=== PATIENT | male | born 1995 | race Caucasian/White ===

== ENCOUNTER 2018-07-09 18:20 | Emergency (ER) | payer OTHER ==
[2018-07-09] MEDS ORDERED: DERMABOND SKIN ADHESIVE TOP ONE (20:16)
--- NOTE | 2018-07-09 20:25 | RAD REPORT ---
EXAM DESCRIPTION: CT - Head Brain Wo Cont - 07/09/2018 8:12 pm CLINICAL HISTORY: TRAUMA Head injury COMPARISON: No comparisons TECHNIQUE: All CT scans are performed using dose optimization technique as appropriate and may inclu de automated exposure control or mA/KV adjustment according to patient size. FINDINGS: No intracranial hemorrhage, hydrocephalus or extra-axial fluid collection.No areas of brai n edema or evidence of midline shift. The paranasal sinuses and mastoids are clear. Small amount of air is seen along the medial soft tissu es of the nose scalp likely related to laceration. Small fracture of the inferior anterior wall of th e frontal sinus near the junction with the anterior ethmoid air cells is present adjacent to this reg ion. IMPRESSION: Small fracture anterior wall of the inferior right frontal sinus near the junction with the ethmoid air cell is noted, with adjacent findings of laceration seen. No acute intracranial abno rmality.
--- NOTE | 2018-07-09 20:41 | ER ---
Nurse's Notes [facility] Name: Ramses Pacheco Jr Age: 22 yrs Sex: Male : 1995 Arrival Date: 07/09/2018 Time: 18:23 Bed 15 Private MD: Kvng Coe B Diagnosis: Postconcussional syndrome;Laceration without foreign body of eyelid and periocular area;Acute Traumatic Frontal Sinus Fracture Presentation: 07/09 18:28 Presenting complaint: Patient states: "I was at was at work today working with some aa5 metal grabbers and they snapped and hit me in the right eye". Small laceration that is superficial noted to right upper eyelid, no active bleeding noted. Pt denies dizziness, denies feeling lightheaded. Reports multiple vomiting episodes. Denies LOC. Transition of care: patient was not received from another setting of care. Onset of symptoms was July 09, 2018 at 15:30. Risk Assessment: Do you want to hurt yourself or someone else? Patient reports no desire to harm self or others. Initial Sepsis Screen: Does the patient meet any 2 criteria? No. Patient's initial sepsis screen is negative. Does the patient have a suspected source of infection? No. Patient's initial sepsis screen is negative. Care prior to arrival: None. 18:28 Method Of Arrival: Ambulatory aa5 18:28 Acuity: MARY 3 aa5 Historical: - Allergies: 18:33 Augmentin; aa5 - PMHx: 18:33 None; aa5 - PSHx: 18:33 None; aa5 - Immunization history:: Adult Immunizations up to date. - Social history:: Smoking status: Patient/guardian denies using tobacco. - Ebola Screening: : No symptoms or risks identified at this time. Screenin:38 Abuse screen: Denies threats or abuse. Denies injuries from another. Abuse screen:. aa1 Nutritional screening: No deficits noted. Tuberculosis screening: No symptoms or risk factors identified. Fall Risk None identified. Assessment: 19:38 General: Appears in no apparent distress. comfortable, Behavior is calm, cooperative, aa1 appropriate for age. Pain: Complains of pain in right eye. Neuro: Level of Consciousness is awake, alert, obeys commands, Oriented to person, place, time, situation, Moves all extremities. Full function Gait is steady, Speech is normal, Pupils are PERRLA, Denies blurred vision dizziness, headache photophobia diplopia. Respiratory: Airway is patent Respiratory effort is even, unlabored, Respiratory pattern is regular, symmetrical. GI: Reports vomiting. : No signs and/or symptoms were reported regarding the genitourinary system. EENT: No signs and/or symptoms were reported regarding the EENT system. Derm: Skin is intact, is healthy with good turgor, Skin is pink, warm \\T\\ dry. Musculoskeletal: Circulation, motion, and sensation intact. Capillary refill < 3 seconds, Range of motion: intact in all extremities. 20:07 Reassessment: Patient appears in no apparent distress at this time. Patient is alert, aa1 oriented x 3, equal unlabored respirations, skin warm/dry/pink. Pt taken to CT at this time. 21:00 Reassessment: Patient appears in no apparent distress at this time. Patient is alert, aa1 oriented x 3, equal unlabored respirations, skin warm/dry/pink. Discussed d/c \\T\\ f/u instructions with pt \\T\\ mother; denies questions or concerns at this time Patient states feeling better. Vital Signs: 18:33 BP 140 / 70; Pulse 96; Resp 18 S; Temp 98.0(TE); Pulse Ox 100% on R/A; Weight 73.94 kg aa5 (R); Height 6 ft. 2 in. (187.96 cm) (R); Pain 5/10; 19:38 BP 119 / 74; Pulse 88; Resp 16; Pulse Ox 99% on R/A; Pain 5/10; aa1 20:31 BP 122 / 78; Pulse 80; Resp 16; Pulse Ox 100% on R/A; aa1 18:33 Body Mass Index 20.93 (73.94 kg, 187.96 cm) aa5 18:33 Pt c/o pain to right eye aa5 Marky Coma Score: 20:35 Eye Response: spontaneous(4). Verbal Response: oriented(5). Motor Response: obeys jr8 commands(6). Total: 15. ED Course: 18:23 Patient arrived in ED. mr 18:24 Kvng Coe MD is Private Physician. mr 18:28 Arm band placed on. aa5 18:32 Triage completed. aa5 19:03 Kian Porras PA is PHCP. jr8 19:03 Quinten Handy MD is Attending Physician. jr8 19:24 Jeannette Crow, RN is Primary Nurse. aa1 19:38 Patient has correct armband on for positive identification. Bed in low position. Call aa1 light in reach. Pulse ox on. NIBP on. 20:[address] nj 20:10 CT completed. Patient tolerated procedure well. Patient moved back from [place]. nm 20:13 CT Head Brain wo Cont In Process Unspecified. EDMS 20:39 Kvng Coe MD is Referral Physician. jr8 21:00 No provider procedures requiring assistance completed. Patient did not have IV access aa1 during this emergency room visit. Administered Medications: No medications were administered Outcome: 20:40 Discharge ordered by . jr8 21:00 Discharged to home ambulatory, with family. aa1 21:00 Condition: good 21:00 Discharge instructions given to patient, family, Instructed on discharge instructions, follow up and referral plans. medication usage, Demonstrated understanding of instructions, follow-up care, medications, Prescriptions given X 2. 21:05 Patient left the ED. aa1 Signatures: Dispatcher [employer] EDMS Jeannette Crow, RN RN aa1 Anila Dotson mr Luz Bermudez RN RN aa5 Kian Porras PA PA jr8 Jesús Chavira Corrections: (The following items were deleted from the chart) 18:33 18:28 Presenting complaint: Patient states: "I was at was at work today working with aa5 some metal grabbers and they snapped and hit me in the right eye". Small laceration that is superficial noted to right upper eyelid, no active bleeding noted. Pt denies dizziness, denies feeling lightheaded. Reports multiple vomiting episodes. Denies LOC. aa5
--- NOTE | 2018-07-09 20:41 | EDPHYS ---
Physician Documentation [facility] Name: Ramses Pacheco Jr Age: 22 yrs Sex: Male : 1995 Arrival Date: 07/09/2018 Time: 18:23 Bed 15 Private MD: Kvng Coe B ED Physician Quinten Handy HPI: 07/09 20:35 This 22 yrs old Male presents to ER via Ambulatory with complaints of Head jr8 Injury Without LOC-Adult, Vomiting, Weakness. 20:35 The patient or guardian reports a laceration, pain, tenderness. The complaints affect jr8 the forehead. Onset: The symptoms/episode began/occurred acutely, today. Associated signs and symptoms: Loss of consciousness: This patient did not experience any loss of consciousness. Pertinent positives: nausea, vomiting. Severity of symptoms: At their worst the symptoms were moderate, in the emergency department the symptoms have improved. The patient has not experienced similar symptoms in the past. The patient has not recently seen a physician. Accidently hit head with large crimping tool at work. Was initially dazed. Had three bouts of vomiting over an hours period of time. Currently better . Historical: - Allergies: 18:33 Augmentin; aa5 - PMHx: 18:33 None; aa5 - PSHx: 18:33 None; aa5 - Immunization history:: Adult Immunizations up to date. - Social history:: Smoking status: Patient/guardian denies using tobacco. - Ebola Screening: : No symptoms or risks identified at this time. ROS: 20:35 ENT: Negative for injury, pain, and discharge, Neck: Negative for injury, pain, and jr8 swelling, Cardiovascular: Negative for chest pain, palpitations, and edema, Respiratory: Negative for shortness of breath, cough, wheezing, and pleuritic chest pain, Abdomen/GI: Negative for abdominal pain, nausea, vomiting, diarrhea, and constipation, Back: Negative for injury and pain, MS/Extremity: Negative for injury and deformity. 20:35 Eyes: Positive for laceration to right eyelid . 20:35 Neuro: Positive for headache, Negative for altered mental status, dizziness, gait disturbance, hearing loss, loss of consciousness, numbness, seizure activity, speech changes, syncope, near syncope, tingling, tinnitus, tremor, visual changes, weakness. Exam: 20:35 ENT: Nares patent. No nasal discharge, no septal abnormalities noted. Tympanic jr8 membranes are normal and external auditory canals are clear. Oropharynx with no redness, swelling, or masses, exudates, or evidence of obstruction, uvula midline. Mucous membranes moist. Neck: Trachea midline, no thyromegaly or masses palpated, and no cervical lymphadenopathy. Supple, full range of motion without nuchal rigidity, or vertebral point tenderness. No Meningismus. Cardiovascular: Regular rate and rhythm with a normal S1 and S2. No gallops, murmurs, or rubs. Normal PMI, no JVD. No pulse deficits. Respiratory: Lungs have equal breath sounds bilaterally, clear to auscultation and percussion. No rales, rhonchi or wheezes noted. No increased work of breathing, no retractions or nasal flaring. Abdomen/GI: Soft, non-tender, with normal bowel sounds. No distension or tympany. No guarding or rebound. No evidence of tenderness throughout. Back: No spinal tenderness. No costovertebral tenderness. Full range of motion. Skin: Warm, dry with normal turgor. Normal color with no rashes, no lesions, and no evidence of cellulitis. MS/ Extremity: Pulses equal, no cyanosis. Neurovascular intact. Full, normal range of motion. Neuro: Awake and alert, GCS 15, oriented to person, place, time, and situation. Cranial nerves II-XII grossly intact. Motor strength 5/5 in all extremities. Sensory grossly intact. Cerebellar exam normal. Normal gait. 20:35 Head/face: Noted is hematoma, that is mild, of the right forehead near nasal bridge . 20:35 Eyes: Periorbital structures: appear normal, Pupils: equal, round, and reactive to light and accomodation, Extraocular movements: intact throughout, Conjunctiva: normal, Corneas: are normal, Sclera: no appreciated abnormality, Anterior chamber: normal, Lids and lashes: laceration, that is superficial, approximately 10 mm(s), of the right upper eyelid. Vital Signs: 18:33 BP 140 / 70; Pulse 96; Resp 18 S; Temp 98.0(TE); Pulse Ox 100% on R/A; Weight 73.94 kg aa5 (R); Height 6 ft. 2 in. (187.96 cm) (R); Pain 5/10; 19:38 BP 119 / 74; Pulse 88; Resp 16; Pulse Ox 99% on R/A; Pain 5/10; aa1 20:31 BP 122 / 78; Pulse 80; Resp 16; Pulse Ox 100% on R/A; aa1 18:33 Body Mass Index 20.93 (73.94 kg, 187.96 cm) aa5 18:33 Pt c/o pain to right eye aa5 Cascade Coma Score: 20:35 Eye Response: spontaneous(4). Verbal Response: oriented(5). Motor Response: obeys jr8 commands(6). Total: 15. Laceration: 20:35 Wound Repair of 1cm ( 0.4in ) subcutaneous laceration to right upper eyelid. Distal jr8 neuro/vascular/tendon intact. Wound prep: Moderate cleansing with betadine, Wound irrigation with saline. Skin closed with 2 thin layer Adhesive skin closure using Dermabond. Patient tolerated well. MDM: 19:05 Patient medically screened. antonietta 20:35 Data reviewed: vital signs, nurses notes, and as a result, I will discharge patient. jr Data interpreted: Pulse oximetry: on room air is 100 %. Interpretation: normal. Counseling: I had a detailed discussion with the patient and/or guardian regarding: the historical points, exam findings, and any diagnostic results supporting the discharge/admit diagnosis, radiology results, the need for outpatient follow up, a family practitioner, to return to the emergency department if symptoms worsen or persist or if there are any questions or concerns that arise at home. 07/09 19:51 Order name: CT Head Brain wo Cont; Complete Time: 20:34 jr8 07/09 19:51 Order name: Dermabond; Complete Time: 20:09 jr8 Administered Medications: No medications were administered Disposition: 07/10 06:46 Co-signature as Attending Physician, Quinten Handy MD I agree with the assessment and antonietta plan of care. Disposition: 07/09/18 20:40 Discharged to Home. Impression: Postconcussional syndrome, Laceration without foreign body of eyelid and periocular area, Acute Traumatic Frontal Sinus Fracture. - Condition is Stable. - Discharge Instructions: Tissue Adhesive Wound Care, Post-Concussion Syndrome. - Prescriptions for Ibuprofen 800 mg Oral Tablet - take 1 tablet by ORAL route every 12 hours As needed take with food; 20 tablet. Zofran 4 mg Oral Tablet - take 1 tablet by ORAL route every 12 hours As needed; 20 tablet. - Work release form, Medication Reconciliation Form, Thank You Letter, Antibiotic Education, Prescription Opioid Use form. - Follow up: Kvng Coe MD; When: 1 - 2 days; Reason: Recheck today's complaints, Continuance of care, Re-evaluation by your physician. - Problem is new. - Symptoms have improved. Signatures: Dispatcher [employer] EDMS Jeannette Crow RN RN aa1 Quinten Handy MD MD cha Calderon, Audri, RN RN aa5 Kian Porras PA PA jr8 Corrections: (The following items were deleted from the chart) 07/09 20:41 20:40 07/09/2018 20:40 Discharged to Home. Impression: Postconcussional syndrome; jr8 Laceration without foreign body of eyelid and periocular area. Condition is Stable. Forms are Medication Reconciliation Form, Thank You Letter, Antibiotic Education, Prescription Opioid Use. Follow up: Kvng Coe; When: 1 - 2 days; Reason: Recheck today's complaints, Continuance of care, Re-evaluation by your physician. Problem is new. Symptoms have improved. jr8 21:05 20:41 07/09/2018 20:40 Discharged to Home. Impression: Postconcussional syndrome; aa1 Laceration without foreign body of eyelid and periocular area; Acute Traumatic Frontal Sinus Fracture. Condition is Stable. Discharge Instructions: Tissue Adhesive Wound Care, Post-Concussion Syndrome. Forms are Medication Reconciliation Form, Thank You Letter, Antibiotic Education, Prescription Opioid Use. Follow up: Kvng Coe; When: 1 - 2 days; Reason: Recheck today's complaints, Continuance of care, Re-evaluation by your physician. Problem is new. Symptoms have improved. jr8
== END 2018-07-09 21:05 | disposition home or self-care (01) ==
LOC: ER 18:20
PROC: 08QNXZZ Repair Right Upper Eyelid, External Approach (ICD-10-PCS; principal; 2018-07-09)
DX: S01.111A Laceration without foreign body of right eyelid and periocular area, initial encounter (principal); S02.19XA Other fracture of base of skull, initial encounter for closed fracture; W22.8XXA Striking against or struck by other objects, initial encounter; Y93.9 Activity, unspecified; Y92.89 Other specified places as the place of occurrence of the external cause; Y99.8 Other external cause status; Z88.1 Allergy status to other antibiotic agents
CPT/HCPCS: 70450; 99284

== ENCOUNTER 2022-05-09 15:52 | Emergency (ER) | payer OTHER, SELFPAY ==
[2022-05-09] MEDS ORDERED: LIDOCAINE 1% W/EPI 1:100,000 MDV 50 ML VIAL ONE (17:23)
--- NOTE | 2022-05-09 17:53 | ER ---
Nurse's Notes [facility] Name: Ramses Pacheco Jr Age: 26 yrs Sex: Male : 1995 Arrival Date: 05/09/2022 Time: 15:55 Bed 12 Private MD: Diagnosis: Facial Laceration Presentation: 05/09 16:28 Chief complaint: Patient states: Laceration to forehead - hit head with large piece of ld1 pipe at work. Denies LOC- no blood thinners. Coronavirus screen: At this time, the client does not indicate any symptoms associated with coronavirus-19. Ebola Screen: No symptoms or risks identified at this time. Complicating Factors: There are no complicating factors for this patient. Initial Sepsis Screen: Does the patient meet any 2 criteria? No. Patient's initial sepsis screen is negative. Does the patient have a suspected source of infection? No. Patient's initial sepsis screen is negative. Risk Assessment: Do you want to hurt yourself or someone else? Patient reports no desire to harm self or others. Onset of symptoms was May 09, 2022. 16:28 Method Of Arrival: Ambulatory ld1 16:28 Acuity: MARY 3 ld1 Triage Assessment: 16:30 General: Appears in no apparent distress. comfortable, Behavior is calm, cooperative, ld1 appropriate for age. Pain: Complains of pain in forehead Pain does not radiate. Pain currently is 3 out of 10 on a pain scale. EENT: No signs and/or symptoms were reported regarding the EENT system. Neuro: Level of Consciousness is awake, alert, obeys commands, Oriented to person, place, time, situation. Cardiovascular: Capillary refill < 3 seconds Patient's skin is warm and dry. Respiratory: Airway is patent Respiratory effort is even, unlabored. Injury Description: Laceration sustained to forehead. Historical: - Allergies: 16:30 Augmentin; ld1 - Home Meds: 16:30 None [Active]; ld1 - PMHx: 16:30 None; ld1 - PSHx: 16:30 None; ld1 - Immunization history:: Adult Immunizations up to date, Client reports having NOT received the Covid vaccine. - Social history:: Smoking status: Patient denies any tobacco usage or history of. Patient/guardian denies using alcohol. Screenin:46 Abuse screen: Denies threats or abuse. Denies injuries from another. Nutritional ld1 screening: No deficits noted. Tuberculosis screening: No symptoms or risk factors identified. Fall Risk None identified. Assessment: 17:46 Reassessment: See triage assessment. ld1 18:15 Reassessment: Patient appears in no apparent distress at this time. Vital Signs: 16:28 BP 146 / 85; Pulse 81; Resp 18; Temp 97.9(O); Pulse Ox 100% on R/A; Weight 81.65 kg; ld1 Height 6 ft. 2 in. (187.96 cm); Pain 3/10; 16:28 Body Mass Index 23.11 (81.65 kg, 187.96 cm) 1 ED Course: 15:55 Patient arrived in ED. [facility] 15:56 [facility]u [facility]NP [facility] 15:56 Ramos Cornejo MD is Attending Physician. [facility] 16:30 Triage completed. 1 16:30 Arm band placed on right wrist. ld1 17:46 Patient has correct armband on for positive identification. Placed in gown. Bed in low ld1 position. Call light in reach. Side rails up X2. property assessment monitor on. Pulse ox on. NIBP on. Door closed. Noise minimized. Warm blanket given. 17:46 No provider procedures requiring assistance completed. Patient did not have IV access ld1 during this emergency room visit. Administered Medications: 17:46 Drug: Lidocaine-Epinephrine -1%: (1:100,000) 20 ml {Note: Administered by Nyla Cantu NP.} Volume: 20 ml; Route: Infiltration; 17:46 Follow up: Response: No adverse reaction ld1 Medication: 17:46 VIS not applicable for this client. 1 Outcome: 17:52 Discharge ordered by . [facility] 18:15 Discharged to home ambulatory. 18:15 Condition: good 18:15 Discharge instructions given to patient, Instructed on discharge instructions, follow up and referral plans. medication usage, Demonstrated understanding of instructions, follow-up care, medications, Prescriptions given X 1. 18:17 Patient left the ED. Signatures: Marilyn Lanza RN RN ss Garcia, Rubi 4 Muriel Patel RN RN ld1 Nyla Cantu FNP [employer] jh7 Corrections: (The following items were deleted from the chart) 16:30 16:30 Home Meds: Unable to obtain; ld1 ld1
--- NOTE | 2022-05-09 17:53 | EDPHYS ---
Physician Documentation [facility] Name: Ramses Pacheco Jr Age: 26 yrs Sex: Male : 1995 Arrival Date: 05/09/2022 Time: 15:55 Bed 12 Private MD: ED Physician Ramos Cornejo Historical: - Allergies: 05/09 16:30 Augmentin; ld1 - Home Meds: 16:30 None [Active]; ld1 - PMHx: 16:30 None; ld1 - PSHx: 16:30 None; ld1 - Immunization history:: Adult Immunizations up to date, Client reports having NOT received the Covid vaccine. - Social history:: Smoking status: Patient denies any tobacco usage or history of. Patient/guardian denies using alcohol. Vital Signs: 16:28 BP 146 / 85; Pulse 81; Resp 18; Temp 97.9(O); Pulse Ox 100% on R/A; Weight 81.65 kg; ld1 Height 6 ft. 2 in. (187.96 cm); Pain 3/10; 16:28 Body Mass Index 23.11 (81.65 kg, 187.96 cm) ld1 MDM: 17:16 Patient medically screened. [facility] 05/09 16:12 Order name: Dressing - Wound; Complete Time: 17:46 [facility] 05/09 16:12 Order name: Gloves, Sterile; Complete Time: 17:46 [facility] 05/09 16:12 Order name: Prolene, Sutures; Complete Time: 17:46 [facility] 05/09 16:12 Order name: Setup Suture Tray; Complete Time: 17:46 [facility] Administered Medications: 17:46 Drug: Lidocaine-Epinephrine -1%: (1:100,000) 20 ml {Note: Administered by Nyla Cantu NP.} Volume: 20 ml; Route: Infiltration; 17:46 Follow up: Response: No adverse reaction ld1 Disposition Summary: 05/09/22 17:52 Discharge Ordered Location: Home [facility] Problem: new [facility] Symptoms: have improved [facility] Condition: Stable [facility] Diagnosis - Facial Laceration [facility] Followup: [facility] - With: Emergency Department - When: 5 - 6 days - Reason: Staple/Suture removal Discharge Instructions: - Discharge Summary Sheet [email or web address] - Laceration Care, Adult 7 - Facial Laceration 7 Forms: - Medication Reconciliation Form jh7 - Work release form ss - Thank You Letter 7 - Antibiotic Education 7 Prescriptions: - Cephalexin 500 mg Oral Capsule - take 1 capsule by ORAL route every 12 hours for 7 days; 14 capsule; Refills: 0, jh7 Product Selection Permitted Signatures: Muriel Patel RN RN ld1 Nyla Cantu FNP [employer] 7 Corrections: (The following items were deleted from the chart) 16:30 16:30 Home Meds: Unable to obtain; ld1 ld1
[2022-05-09 18:27] VITALS: BP 146/85; TEMP 97.9; O2SAT 100
== END 2022-05-09 18:17 | disposition home or self-care (01) ==
LOC: ER 15:52
DX: S01.81XA Laceration without foreign body of other part of head, initial encounter (principal); Z88.1 Allergy status to other antibiotic agents